=== PATIENT | male | born 1980 ===

== ENCOUNTER 2017-10-01 21:11 | Observation (INO) | payer MEDICAID ==
[2017-10-01] MEDS ORDERED: Sodium Chloride 0.9% 1,000 ML IV STA (21:46)
[2017-10-01 22:24] LABS: VENOUS BLOOD GAS BASE EXCESS 2.8 mmol/L (0.0-2.0); VENOUS BLOOD GAS PCO2 47 mmHg (40-60); VENOUS BLOOD GAS PO2 39 mm/Hg (30-55); VENOUS BLOOD PH 7.39 (7.32-7.43)
--- NOTE | 2017-10-01 22:39 | ED PDOC ---
HPI: Back Time Seen by Provider: 10/01/17 21:35 Chief Complaint (Nursing): Back Pain Chief Complaint (Provider): Left Flank Pain History Per: Patient History/Exam Limitations: no limitations Onset/Duration Of Symptoms: Hrs Current Symptoms Are (Timing): Still Present Quality Of Discomfort: "Pain" Severity: None Previous Symptoms: Back Pain Associated Symptoms: None Additional Complaint(s): 37 year old male presenting with constant left flank pain x7am. The patient states that this plain is similar to the pain he had 3 week ago when he was diagnosed with kidney stones at [facility]. The patient states that he had 9mm stones but after 2-3 days the pain improved. He reports that he followed up with Dr. Gallardo and underwent lithotripsy yesterday but the pain returned today. Patient states he has been taking percocet which has offered him no relief. Patient also notes 1 episodes of vomiting, nausea and chills prior to arrival. Patient reports seeing particles in his urine but otherwise no blood or large stones. PMD: Jonathan Moreno [facility] Past Medical History Reviewed: Historical Data, Nursing Documentation, Vital Signs Vital Signs: Last Vital Signs Temp 98.5 F 10/01/17 21:14 Pulse 109 H 10/01/17 21:14 Resp 18 10/01/17 21:14 BP 114/74 10/01/17 21:14 Pulse Ox 98 10/01/17 21:14 - Medical History PMH: Asthma, Back Problems (herniated discs), Kidney Stones Denies: Diabetes, Hepatitis, HIV, HTN, Seizures, Sexually Transmitted Disease - Surgical History Other surgeries: post traumatic right wrist surgery - Family History Family History: States: Unknown Family Hx - Social History Current smoker - smoking cessation education provided: No Ex-Smoker (has not smoked in the last 12 months): No Alcohol: Occasional Drugs: Other (admits to occasional marijuana use) - Immunization History Hx Influenza Vaccination: Yes - Home Medications Home Medications: Ambulatory Orders Medication Instructions Recorded Montelukast [Singulair] 10 mg PO DAILY 11/20/15 Pantoprazole Sodium [Protonix] 40 mg PO DAILY 11/20/15 Albuterol HFA [Ventolin HFA 90 2 puff IH Q4H PRN 01/31/17 mcg/actuation (8 g)] Beclomethasone Dipropionate [Qvar 1 puff IH Q12H 01/31/17 80 mcg] Cetirizine HCl [All Day Allergy 10 mg PO DAILY 01/31/17 Relief] Ciprofloxacin [Cipro] 500 mg PO BID 7 Days #14 tab 10/03/17 traMADol [Ultram] 50 mg PO Q6 #10 tab 10/03/17 - Allergies Allergies/Adverse Reactions: Allergies Allergy/AdvReac Type Severity Reaction Status Date / Time No Known Allergies Allergy Verified 10/01/17 21:45 Review of Systems ROS Statement: Except As Marked, All Systems Reviewed And Found Negative Constitutional: Positive for: Chills Gastrointestinal: Positive for: Nausea, Vomiting Musculoskeletal: Positive for: Back Pain (left flank pain) Physical Exam - Reviewed Nursing Documentation Reviewed: Yes Vital Signs Reviewed: Yes - Physical Exam Appears: Positive for: Uncomfortable, In Acute Distress (acute painful distress) Head Exam: Positive for: ATRAUMATIC, NORMAL INSPECTION, NORMOCEPHALIC Skin: Positive for: Normal Color, Warm, Dry. Negative for: Rash Eye Exam: Positive for: Normal appearance, EOMI, PERRL ENT: Positive for: Pharynx Is (clear) Neck: Positive for: Painless ROM, Supple Cardiovascular/Chest: Positive for: Regular Rate, Rhythm, Chest Non Tender. Negative for: Tachycardia Respiratory: Positive for: Normal Breath Sounds. Negative for: Rhonchi, Wheezing, Respiratory Distress Gastrointestinal/Abdominal: Positive for: Bowel Sounds, Soft. Negative for: Tenderness, Guarding, Rebound Back: Positive for: L CVA Tenderness. Negative for: R CVA Tenderness, Vertebral Tenderness Extremity: Positive for: Normal ROM, Tenderness. Negative for: Deformity, Swelling Lymphatic: Negative for: Adenopathy Neurologic/Psych: Positive for: Alert. Negative for: Motor/Sensory Deficits - Laboratory Results Result Diagrams: 10/01/17 22:00 10/01/17 22:00 - ECG O2 Sat by Pulse Oximetry: 98 (RA) Pulse Ox Interpretation: Normal Medical Decision Making Medical Decision Makin Initial Impression 37 y/o male presenting with left flank pain Differentials: Renal Colic, Pylonephritis, Muscle Sprain Initial plan: * VBG * Shock Panel * CT ABD&PELV w/o contrast * CMP * Udip * CBC * Morphine 4mg IVP * NS 1000mls IV 1000mls/hr * Toradol 30mg IVP * Tylenol 975mg PO * Zofran 8mg IV * Urine Culture * Urinalysis * Reevaluation Labs demonstrate leukocytosis and WBC>RBCs in UA CT demonstrated multiple stones in LEFT ureter, mild to mod hydro, perinephric stranding DW pt findings. Pt reports persistent pain. DANIELA Gallardo. Will see pt in hospital tomorrow morning. Advises IVF, pain control, antibiotics. DANIELA Lam covering for PMD Dr Osmel Sheikh in [facility] Documented by Renuka Sanchez acting as a scribe for Carito Panchal MD. All medical record entries made by the Scribe were at my direction and personally dictated by me. I have reviewed the chart and agree that the record accurately reflects my personal performance of the history, physical exam, medical decision making, and the department course for this patient. I have also personally directed, reviewed, and agree with the discharge instructions and disposition. Disposition - Clinical Impression Clinical Impression: Renal calculi, Pyelonephritis Counseled Patient/Family Regarding: Studies Performed, Diagnosis - Disposition Disposition Time: 23:30 Condition: FAIR - Pt Status Changed To: Hospital Disposition Of: Observation - POA Present On Arrival: None
[2017-10-01 23:29] LABS: BASO # 0.1 K/uL (0.0-0.2); BASO % 0.5 % (0.0-2.0); EOS % 0.3 % (0.0-4.0); HEMOGLOBIN 13.1 g/dL (12.0-18.0); LYMPH # 2.2 K/uL (1.0-4.3); LYMPH % 15.7 % (20.0-40.0); MEAN CELL VOLUME 92.2 fl (80.0-94.0); MEAN CORPUSCULAR HEMOGLOBIN 30.5 pg (27.0-31.0); MEAN CORPUSCULAR HGB CONC 33.1 g/dL (33.0-37.0); MEAN PLATELET VOLUME 7.9 fl (7.2-11.7); MONO # 1.1 K/uL (0.0-0.8); MONO % 8.1 % (0.0-10.0); NEUT # 10.3 K/uL (1.8-7.0); NEUT % 75.4 % (50.0-75.0); NRBC % 0.1 % (0.0-0.0); RBC 4.29 Mil/uL (4.40-5.90); RED CELL DISTRIBUTION WIDTH 13.7 % (11.5-14.5); WHITE BLOOD COUNT 13.7 K/uL (4.8-10.8)
[2017-10-01 23:36] LABS: URINE BACTERIA RARE (<OCC); URINE BILIRUBIN NEGATIVE (NEGATIVE); URINE BLOOD LARGE (NEGATIVE); URINE CLARITY CLEAR (Clear); URINE COLOR YELLOW (YELLOW); URINE GLUCOSE (UA) NEG (Normal); URINE HYALINE CAST 0-2 /hpf (0-2); URINE LEUKOCYTE ESTERASE SMALL Leu/uL (Negative); URINE NITRATE NEGATIVE (NEGATIVE); URINE PROTEIN 30 mg/dL (NEGATIVE); URINE UROBILINOGEN 0.2-1.0 mg/dL (0.2-1.0)
[2017-10-01 23:37] LABS: ALB/GLOB RATIO 1.3 (1.0-2.1); ALBUMIN 4.3 g/dL (3.5-5.0); ALT/SGPT 26 U/L (21-72); AST/SGOT 22 U/L (17-59); BLOOD UREA NITROGEN 7 mg/dl (9-20); CALCIUM 9.2 mg/dL (8.4-10.2); GFR AFRICAN-AMERICAN > 60; GFR NON-AFRICAN AMERICAN > 60
--- NOTE | 2017-10-01 23:40 | CT ---
EXAM: CT Abdomen and Pelvis Without Intravenous Contrast CLINICAL HISTORY: 37 years old, male; Pain; Abdominal pain; Flank; Left; Prior surgery; Surgery date: Post-operative (0-2 days); Surgery type: Lithotripsy yesterday; Additional info: Left renal colic recent lithotripsy TECHNIQUE: Axial computed tomography images of the abdomen and pelvis without intravenous contrast. All CT scans at this facility use one or more dose reduction techniques, viz.: automated exposure control; ma/kV adjustment per patient size (including targeted exams where dose is matched to indication; i.e. head); or iterative reconstruction technique. Coronal and sagittal reformatted images were created and reviewed. COMPARISON: No relevant prior studies available. FINDINGS: Lower thorax: Minimal atelectasis. ABDOMEN: Liver: Unremarkable. Gallbladder and bile ducts: No calcified stones. No ductal dilation. Pancreas: Unremarkable. No ductal dilation. Spleen: No splenomegaly. Adrenals: No mass. Kidneys and ureters: Mild stranding about LEFT kidney. Few calculi within LEFT kidney. Moderate pelvocaliectasis of LEFT kidney. Mildly dilated LEFT ureter. Three calculi within left distal ureter, largest measuring 0.6 x 0.4 x 0.5 cm. Stomach and bowel: Probable underdistention of LEFT colon. No definite mural thickening. No obstruction. Appendix: Normal caliber. No inflammation. PELVIS: Bladder: Collapsed bladder, limiting evaluation. No stones. Reproductive: Unremarkable as visualized. ABDOMEN and PELVIS: Intraperitoneal space: No significant fluid collection. No free air. Bones/joints: No acute fracture. Soft tissues: Tiny umbilical hernia containing fat. Vasculature: Unremarkable. No aneurysm. Lymph nodes: No pathologically enlarged lymph nodes. IMPRESSION: 1. LEFT distal ureteral calculi with [id number] hydroureteronephrosis. 2. Incidental/non-acute findings are described above.
[2017-10-02] MEDS ORDERED: Sodium Chloride 0.9% 1,000 ML IV STA (00:38)
[2017-10-02] MEDS ORDERED: cefTRIAXone (Rocephin) 1 gm Inj ONE (00:41)
[2017-10-02] MEDS ORDERED: Albuterol HFA 90 mcg/actuation (8 g) IH PRN (04:28)
[2017-10-02] MEDS ORDERED: BECLOMETHASONE DIPROPIONATE IH SCH (04:30)
[2017-10-02] MEDS: Pantoprazole 40 mg EC Tab PO SCH (09:03)
[2017-10-02] MEDS ORDERED: levoFLOXacin 500 mg in D5W 500 MG/100 ML BAG IVPB ONE (09:05)
[2017-10-02] MEDS: levoFLOXacin 500 mg in D5W 500 MG/100 ML BAG IVPB SCH (09:06)
[2017-10-02] MEDS: Dextrose 5%/0.45% NS 1,000 ML IV SCH (20:25)
[2017-10-02] MEDS ORDERED: Mometasone 220 mcg/puff-14 puff Inh INH SCH (22:00)
[2017-10-03] MEDS: Dextrose 5%/0.45% NS 1,000 ML IV SCH (06:40)
[2017-10-03 08:29] LABS: PARTIAL THROMBOPLASTIN TIME 27.8 Seconds (25.6-37.1); PROTHROMBIN TIME 11.5 Seconds (9.8-13.1)
--- NOTE | 2017-10-03 08:53 | HP ---
CHIEF COMPLAINT: Left flank pain. HISTORY OF PRESENT ILLNESS: This is a 37-year-old male who recently had lithotripsy done for kidney stone and after lithotripsy pain improved, but pain returned yesterday and the patient was brought to emergency room and was admitted for further management. PAST MEDICAL HISTORY: Significant for nephrolithiasis, asthma, and back problem. PAST SURGICAL HISTORY: Remarkable for lithotripsy. PERSONAL HISTORY: The patient is currently nonsmoker, nondrinker, . MEDICATIONS: The patient is on Percocet, Singulair, albuterol, and levofloxacin. ALLERGIES: THE PATIENT IS NOT ALLERGIC TO ANY MEDICATIONS. FAMILY HISTORY: Noncontributory. REVIEW OF SYSTEMS: Positive left flank pain. Review of systems otherwise is negative for headache, dizziness, syncope, or loss of consciousness. No chest pain, shortness of breath, nausea, vomiting, diarrhea, constipation, had any joint or extremity pain. Review of systems of all other organ system is unremarkable. PHYSICAL EXAMINATION: GENERAL: Well-built and well-nourished young male in no acute distress. VITAL SIGNS: Temperature afebrile, pulse 88, respirations 18, and blood pressure 136/76. HEENT AND NECK: Pupils are reacting to light. No JVD. No thyromegaly. No lymphadenopathy. No nystagmus. Normocephalic and atraumatic skull. HEART: S1 and S2 normal and regular. No significant murmur, gallop or rub is heard. LUNGS: Shows good bilateral air entry. No rales or rhonchi. ABDOMEN: Soft and nontender. No organomegaly. No fluid. Bowel sounds are plus. The patient has left flank tenderness and left lower and middle quadrant minimal sensitivity or tenderness also present. EXTREMITIES: No edema. No calf swelling. No tenderness. No acute ischemia. CENTRAL NERVOUS SYSTEM: Essentially unchanged. DIAGNOSTIC DATA: Available diagnostic data reviewed. Urinalysis with microscopic WBC of 13, but nitrite and leukocyte is negative. CAT scan of abdomen shows left ureter stone with hydronephrosis. Sodium 143, potassium 3.9, chloride 102, bicarb 25, BUN 7, and creatinine 1.0. SMA-12 is unremarkable. WBC 13, hemoglobin 13.1, hematocrit 39.5, and platelet 330. ADMITTING IMPRESSION: Urinary tract infection, nephrolithiasis, hydronephrosis, questionable pyelonephritis, and bronchial asthma. PLAN: As ordered. Case and plan discussed with the patient. Vitaly Lam MD
[2017-10-03] MEDS: Pantoprazole 40 mg EC Tab PO SCH (09:03)
[2017-10-03] MEDS: levoFLOXacin 500 mg in D5W 500 MG/100 ML BAG IVPB SCH (11:00)
[2017-10-03] MEDS ORDERED: Propofol 10 mg/ml Inj (20 ML) ONE ×3 (11:15→12:00)
[2017-10-03] MEDS ORDERED: Midazolam 2 MG/2 ML VIAL ONE ×2 (11:15→11:41)
[2017-10-03] MEDS ORDERED: ePHEDrine 50 mg/ml Inj ONE (11:15)
[2017-10-03] MEDS ORDERED: cefTRIAXone (Rocephin) 1 gm Inj ONE (11:18)
[2017-10-03] MEDS ORDERED: Iohexol 300 100 ML IJ ONE (11:18)
[2017-10-03] MEDS ORDERED: Lactated Ringer's 1,000 ML IV ONE (11:30)
--- NOTE | 2017-10-03 11:33 | PN ---
DATE: 10/03/2017 SUBJECTIVE: The patient is seen and examined. Interim events noted. Urology consult is pending. The patient still complains of significant pain. The patient also had passed few stones but pain still persists. PHYSICAL EXAMINATION: GENERAL: Patient is in no acute distress. VITAL SIGNS: Stable. HEART: S1, S2, normal regular. LUNGS: Good bilateral air exchange. ABDOMEN: Soft, nontender. No organomegaly. No left costovertebral angle tenderness and also has left-sided abdominal sensitivity, although no sign of acute abdomen. No guarding, no rigidity, no rebound. EXTREMITIES: No edema, no calf swelling. No tenderness. No acute ischemia. CENTRAL NERVOUS SYSTEM: Essentially unchanged. DIAGNOSTIC DATA: Available diagnostic data reviewed. PLAN: As ordered. Vitaly Lam MD
[2017-10-03] MEDS ORDERED: cefTRIAXone (Rocephin) 1 gm Inj IVPB ONE (11:40)
[2017-10-03] MEDS ORDERED: Sodium Chloride 0.9% 1,000 ML IV ONE (12:12)
[2017-10-03] MEDS ORDERED: HYDROmorphone 0.5 mg/0.5 ml ISec IVP PRN (12:16)
--- NOTE | 2017-10-03 13:37 | OP ---
PROCEDURE DATE: 10/03/2017 PREOPERATIVE DIAGNOSIS: Acute left renal colic secondary to occlusive left multiple distal ureteral calculi. PROCEDURE: Cystoscopy, left ureteroscopy stone basketing and J stent placement. DESCRIPTION OF PROCEDURE: Under general anesthesia, patient was placed on operating table in dorsal lithotomy position. The area of the groin was draped and prepped in standard manner using a short ureteroscope and entered into the bladder atraumatically. Identified the left ureteral orifice, engaged it and over a floppy tip central wire, I advanced the ureteroscope into the left ureter. In the beginning, there were multiple small fragments, which I attempted to engage. They were from the distal ureter to the mid ureter. Many small fragments, I deployed a helical basket and just broke out the small stones that were in the ureter. In the upper portion of the ureter, there were some small fragments and finally I got to the extent of the ureteropelvic junction at which point, I did a retrograde pyelogram, I did not see any obvious filling defect of residual stones, however, there could be more because these are very tiny fragments post lithotripsy, so I decided at this point to leave a 4.7 Macanese in case they were more that he should not experience postop renal colic. So, 4.7 multi-length double J stent was fluoroscopically placed into place and then the patient was taken from the operating room in good condition. Beatrice Gallardo MD
[2017-10-03 13:54] VITALS: RESP 20
[2017-10-03 16:39] VITALS: BP 129/82; PULSE 80; TEMP 98.3
[2017-10-03 22:38] VITALS: O2SAT 98
== END 2017-10-03 17:11 | disposition home or self-care (01) ==
LOC: H.ER 21:11 → H.ERHOLD 10-02 00:05 → H.MEDSURG1 10-02 12:51
PROVIDERS: ADMIT Internal Medicine; ATTEND Internal Medicine
DX: N13.6 Pyonephrosis (principal); J45.909 Unspecified asthma, uncomplicated; F12.90 Cannabis use, unspecified, uncomplicated
CPT/HCPCS: 36415; 52320; 52332; 74176; 80053; 81003; 82140; 82340; 82507; 82570; 82803; 83735; 83945; 83986; 84105; 84133; 84300; 84392; 84560; 85025; 85610; 85730; 87086; 96361; 96365; 96372; 96375; 99285; C1769; C2617; G0378; J0696; J1170; J1885; J2250; J2270; J2405; J2704; J3010; J7040; J7042; J7120; Q9967

== ENCOUNTER 2017-10-14 06:31 | Day surgery (SDC) | payer MEDICAID ==
[2017-10-11 13:51] VITALS: BMI 25.6
[2017-10-14] MEDS ORDERED: Ciprofloxacin 400mg/200ml D5W 0 MG/0 ML BAG IVPB ONE (07:23)
[2017-10-14] MEDS ORDERED: Succinylcholine 200 mg/10 ml Inj IV ONE (07:24)
[2017-10-14] MEDS ORDERED: Propofol 10 mg/ml Inj (20 ML) ONE ×2 (07:24→08:09)
[2017-10-14] MEDS ORDERED: Phenylephrine 10 mg/ml Inj ONE (07:29)
[2017-10-14] MEDS ORDERED: Lactated Ringer's 1,000 ML IV ONE (08:08)
[2017-10-14] MEDS ORDERED: Lidocaine 2% Jelly (5 ml) TOP ONE (08:10)
[2017-10-14 10:04] VITALS: RESP 18
[2017-10-14 10:48] VITALS: BP 136/69; PULSE 74; TEMP 98.6; O2SAT 98
--- NOTE | 2017-10-14 12:53 | OP ---
PROCEDURE DATE: 10/14/2017 PREOPERATIVE DIAGNOSIS: Post left lithotripsy. POSTOPERATIVE DIAGNOSIS: Post left lithotripsy. PROCEDURE PERFORMED: Cystoscopy with removal of double J stent. DESCRIPTION OF PROCEDURE: Under general anesthesia, the patient was placed on the operating table in dorsal lithotomy position. I initially took some films to see if there were any residual stones and with the level of acuity of the functioning x-ray equipment, I was unable to see any residual stone and in fact barely able to visualize the J stent that was in place. At this time then, I introduced a number 21 cystoscope, identified the J stent and used the grasper to remove the J stent completely. The patient then was taken from the operating room in good condition. Beatrice Gallardo MD
--- NOTE | 2017-10-14 14:20 | RAD ---
PROCEDURE: Intraoperative Fluoroscopy. HISTORY: CYSTO: REMOVAL OF LEFT URETERAL STENT FINDINGS: Fluoroscopic assistance was provided for left ureteral stent removal. Please refer to the operative report from [facility]. 0.3 minutes of fluoroscopy time was utilized.
--- NOTE | 2017-10-17 07:59 | DS ---
ADMIT: 10/14/17 DISCHARGE : 10/14/17 HISTORY AND HOSPITAL COURSE: The patient came in today electively for removal of double J stent following a lithotripsy. The patient had an uneventful procedure. POST-OP CONDITION: In recovery, he is doing fine. He will be discharged today once stable. DISPOSITION: Home FOLLOW-UP: Call office for appointment Beatrice Gallardo MD
== END 2017-10-14 10:50 | disposition home or self-care (01) ==
LOC: H.OPSURG 06:31
PROVIDERS: ATTEND Urology
DX: N20.0 Calculus of kidney (principal)
CPT/HCPCS: 52310; 88304; J0330; J0690; J2001; J2370; J2704; J3010; J7120

== ENCOUNTER 2017-10-21 08:56 | Day surgery (SDC) | payer MEDICAID ==
[2017-10-11 13:51] VITALS: BMI 25.6
[2017-10-21] MEDS ORDERED: Lidocaine 1% Inj (20ml) ONE (10:15)
[2017-10-21] MEDS ORDERED: Lidocaine 1% w Epi 1:100,000 Inj ONE (10:15)
[2017-10-21 10:23] VITALS: RESP 18
[2017-10-21] MEDS ORDERED: Lactated Ringer's 1,000 ML IV ONE (11:10)
[2017-10-21] MEDS ORDERED: Propofol 10 mg/ml Inj (20 ML) ONE ×2 (11:10→11:26)
[2017-10-21] MEDS ORDERED: Midazolam 2 MG/2 ML VIAL ONE ×2 (11:10→11:18)
[2017-10-21] MEDS ORDERED: Lidocaine 2% MPF (5 ml) Inj ONE (11:11)
[2017-10-21] MEDS ORDERED: Lidocaine 1% Inj (20ml) SC ONE (11:45)
--- NOTE | 2017-10-21 12:05 | CP.SDSHP ---
Same Day Surgery H & P - History Proposed Procedure: Excision of forehead lipoma Pre-Op Diagnosis: Forehead lipoma - Allergies Allergies: Allergies No Known Allergies Allergy (Verified 10/14/17 06:48) - Physical Exam Vital Signs: Vital Signs 10/21/17 10/21/17 10:15 10:24 Temperature 98.6 F Pulse Rate 86 86 Respiratory 18 Rate Blood Pressure 122/69 O2 Sat by Pulse 99 Oximetry Mental Status: Alert & Oriented x3 Neuro: WNL Heart: WNL Lungs: WNL GI: WNL - {Optional Preform as Required} Breast: WNL Abdomen: WNL Rectal: WNL Integument: WNL MAGAZINE FILLER: WNL : WNL Ortho: WNL ENT: WNL - Impression Impression: forehead lipoma - Date & Time Date: 10/21/17 Time: 11:00 Short Stay Discharge - Short Stay Discharge Admitting Diagnosis/Reason for Visit: D17.9 Disposition: HOME/ ROUTINE Medications: oxyCODONE/Acetaminophen 1/2TAB [Percocet 5-325 mg HALF TAB] 0.5 ea PO Q6 PRN # 10 tab PRN Reason: Pain, Severe (8-10) Referrals: Nasima Sheikh MD [Primary Care Provider] - Constantino Souza MD [Staff Provider] - Follow-up: Please follow up in 2 weeks. Additional Instructions (Diet, Activity): Return to regular diet Return to regular physical activity
[2017-10-21] MEDS: HYDROmorphone 0.5 mg/0.5 ml ISec IVP PRN ×2 (12:15→12:30)
--- NOTE | 2017-10-21 12:21 | PCM.SURG1 ---
Surgeon's Initial Post Op Note - Surgeon's Notes Surgeon: Libby Auditing Coder: Prachi Pre-Operative Diagnosis: Forehead lesion Operative Findings: lipoma Post-Operative Diagnosis: forehead lipoma Operation Performed: removal of forehead lipoma Specimen/Specimens Removed: lipoma Estimated Blood Loss: EBL {In ML}: 10 Date of Surgery/Procedure: 10/21/17 Time of Surgery/Procedure: 11:00
[2017-10-21] MEDS ORDERED: Oxycodone/Acetaminophen 5/325 mg Tab PO PRN (12:45)
--- NOTE | 2017-10-21 14:42 | OP ---
PROCEDURE DATE: 10/21/2017 PREOPERATIVE DIAGNOSIS: Mass to the right side of the forehead. POSTOPERATIVE DIAGNOSIS: Mass to the right side of the forehead. PROCEDURE: Excision of the mass to the right side of the forehead. SURGEON: Constantino Souza MD RESIDENTIAL CARE OFFICER: residential advisor. TYPE OF ANESTHESIA: General LMA intubation. INTRAVENOUS FLUIDS: Crystalloids. ESTIMATED BLOOD LOSS: 1 mL. INTRAOPERATIVE FINDINGS: Mass to the right forehead. SPECIMENS: Mass of the right forehead. BRIEF HISTORY: Mr. Manriquez is a very pleasant 37-year-old gentleman who presented to the office complaining of mass to the right side of the forehead and he wished for to be excised surgically. All the risks and benefits of the procedure were explained to the patient and with the patient having a full understanding of all the risks and benefits involved, informed consent was obtained and the patient was taken to the operating room for above-stated procedure. DESCRIPTION OF PROCEDURE: The patient was brought into the operating room and placed supine on the operating table. Bilateral Flowtron boots were applied to the patient's lower extremities. After successful induction of anesthesia and successful LMA intubation by the Anesthesia Team, the patient's forehead was prepped with Betadine and draped in standard surgical fashion. Prior to the beginning of procedure, the patient received prophylactic Ancef antibiotic, a time-out was called in the room, and everyone in the room were in agreement. Using #15 blade and scalpel knife, approximately 1.5-cm incision was made in the transverse fashion right on top of the palpable mass of the forehead and subsequent to that dissection was carried down with electrocautery until the mass was completely excised and passed off to the [facility] as a specimen. At this point in time, hemostasis was achieved with electrocautery and once this was accomplished, one interrupted 3-0 Vicryl suture was placed in the deep dermal layer and skin was reapproximated with three interrupted 3-0 nylon sutures. At this point in time, the patient's incision was infiltrated with lidocaine anesthetic. The patient's forehead was washed and dried and clean dressing was applied to the site of the incision. The patient was successfully extubated by the Anesthesia Team, transferred to the stretcher and taken to the recovery room in stable condition. At the end of the procedure, all instrument counts, needles and sponges were correct. Constantino Souza MD [facility] # [id number]
[2017-10-21 14:48] VITALS: O2SAT 96
[2017-10-21 14:51] VITALS: BP 115/88; PULSE 83; TEMP 97.9
== END 2017-10-21 14:35 | disposition home or self-care (01) ==
LOC: H.OPSURG 08:56
PROVIDERS: ATTEND Surgery
DX: D17.0 Benign lipomatous neoplasm of skin and subcutaneous tissue of head, face and neck (principal)
CPT/HCPCS: 11441; 88305; J0690; J1170; J2250; J2405; J2704; J3010; J7120